=== PATIENT | male | born 1965 | race Two or more races ===

== ENCOUNTER 2021-07-10 08:44 | Emergency (ER) | payer MEDICAID, SELFPAY ==
--- NOTE | ~2021-07-10 | XR_ITS ---
EXAMINATION: XR RIBS, LEFT CLINICAL INFORMATION: Fall. Pain. COMPARISON: None TECHNIQUE: 3 views of the left ribs were obtained. FINDINGS: The cardiac and mediastinal contours are normal. Lungs are clear. There is a small left pleural effusion. There is no pneumothorax area there are recent appearing left posterior seventh and question eighth rib fractures. There are old left posterior 11th and question 10th rib fractures. XR/XR ribs LT min 3V w CXR1V IMPRESSION: Multiple left rib fractures of varying ages. There is a recent appearing left posterior seventh and question eighth rib fracture. Small left pleural effusion. No pneumothorax.
--- NOTE | ~2021-07-10 | CT_ITS ---
EXAMINATION: CT CHEST WITHOUT CONTRAST CLINICAL INFORMATION: Multiple left rib fractures. Rule out pneumothorax COMPARISON: Left RIBS 07/10/2021 TECHNIQUE: Multidetector volumetric CT imaging of the chest was done. Axial MIP volume rendering provided. Sagittal and coronal reformatted images were obtained. This CT examination was performed using dose optimization techniques as appropriate, variously including the following: *Automated exposure control *Adjustment of mA and/or kV according to patient size (this includes techniques or standardized protocols for targeted exams where dose is matched to indication/reason for exam; i.e. extremities or head) *Use of iterative reconstruction technique DLP: 250 mGy-cm FINDINGS: NOTEREADER: Well-inflated lungs with mild flattening of left hemidiaphragm LUNGS: The lungs are well-expanded and clear of acute pneumonic process. There is no lung contusion or consolidation. MEDIASTINUM: The thyroid lobes are symmetric and normal. The central trachea and the bronchi are widely patent. There are no mediastinal mass or hematoma. There are small shotty aortic window and precarinal lymph nodes. The thoracic aorta appears to be normal caliber. PLEURA: There is a small left pleural effusion with a small loculated pneumothorax. There is no pneumothorax. AXILLA: No lymphadenopathy. UPPER ABDOMEN: Visualized liver, spleen, pancreas and bilateral adrenal glands are unremarkable. OSSEOUS STRUCTURES: There are minimally displaced left posterior eighth and nondisplaced seventh rib fractures. No additional fractures seen. CT/CT chest wo con IMPRESSION: Left posterior eighth and posterolateral seventh rib fractures with small loculated left pleural effusion with fluid collection. No visible lung contusion, mediastinal hematoma or pneumothorax. Fleischner guidelines were followed.
[2021-07-10 09:10] VITALS: BP 169/94; PULSE 75; RESP 16; TEMP 36.8; O2SAT 100; BMI 24.2
--- NOTE | 2021-07-10 09:51 | ED_ITS ---
HPI - General Adult General Chief complaint: General Medical Stated complaint: rib pain l side fell down stairs Time Seen by Provider: 07/10/21 09:15 Source: patient Mode of arrival: ambulatory History of Present Illness HPI narrative: 55-year-old male no significant past medical history presenting to the ED complaining of left-sided rib pain x3 days s/p mechanical fall down 6 stairs. Denies symptoms prior to fall, denies head trauma or LOC. Reports pain with breathing/movement. Denies abdominal pain, nausea, vomiting, neck/back pain, headache. Denies taking AC Onset (ago): day(s) Related Data Previous Rx's Medication Instructions Recorded acetaminophen 500 mg tablet 500 mg PO Q6H PRN #14 tab 07/10/21 (Tylenol Extra Strength) ibuprofen 600 mg tablet 600 mg PO Q8H PRN #14 tab 07/10/21 oxycodone 5 mg tablet 5 mg PO Q6H PRN 3 Days #9 tab 07/10/21 Allergies Allergy/AdvReac Type Severity Reaction Status Date / Time No Known Allergies Allergy Mild N/A Verified 07/10/21 09:10 Review of Systems Review of Systems: Constitutional: No Fever, No Chills ENT/Mouth: No Ear Pain, No Nasal Congestion, No sore throat, No Rhinorrhea, No Swallowing Difficulty Cardiovascular: + Chest wall Pain, + SOB from pain Respiratory: No Cough, No Sputum, No Wheezing Gastrointestinal: No Nausea, No Vomiting, No Diarrhea, No Constipation, No Abdominal pain Genitourinary: No Dysuria, No Urinary Incontinence/retention, No Flank Pain Musculoskeletal: No joint pain, No Myalgias, No Joint Swelling Skin: No Skin Lesions, No rash Neuro: No Weakness, No Numbness, No Paresthesias, No head trauma, No LOC Yes all other systems are reviewed and are negative [facility] Past Medical History Attestation statement: The following information was validated with the patient. Medical History No known health problems Social History Social History Advance Directives: No Advance Directives Information Provided: No Physical Exam ED Vital Signs: Vital Signs - 24 hr 07/10/21 09:10 Temperature 98.2 F Pulse Rate 75 Respiratory Rate 16 Blood Pressure 169/94 H Pulse Oximetry 100 BMI result Body Mass Index 24.2 Const General: cooperative, healthy appearing and no acute distress Orientation/consciousness: patient oriented x3 Limitations: no limitations HENMT Head: Yes normal to inspection and Yes atraumatic Ears: hearing grossly normal bilaterally General nose exam: Normal external nose present Face and sinus: Yes normal facial exam Eyes General: appearance normal, both eyes and all related structures EOM: EOMs intact bilaterally Neck Other: No midline cervical spinous tenderness Neck: Yes normal visual inspection and Yes no meningeal signs Chest Other: No appreciable chest wall deformity. No flail chest. + left anterior lateral chest wall tenderness to palpation reproducing subjective complaint Chest palpation & inspection: no crepitus and tenderness Resp Effort & Inspection: normal respiratory effort and no respiratory distress Auscultation: clear to auscultation bilaterally, no rales, no rhonchi and no wheezes Cardio Rate: regular rate Heart sounds: S1 normal heart sound present and S2 normal heart sound present GI Inspection: Yes normal to inspection Palpation (GI): Soft to palpation, nontender, no guarding and not rigid General: Yes no CVA tenderness Back/Spine/Pelvis Other: No midline thoracic/lumbar spinous tenderness/step-off or deformity Back: no CVA tenderness Skin Rashes: no rashes Wounds: no wounds Neuro General: patient oriented x3, tone normal and no meningeal signs Gait exam (Neuro): Normal gait present Extrem General: Yes normal to inspection Course Course Course Narrative: XR ribs LT min 3V w CXR1V IMPRESSION: Multiple left rib fractures of varying ages. There is a recent appearing left posterior seventh and question eighth rib fracture. Small left pleural effusion. No pneumothorax. > patient admits to old prior left rib fractures. >> will obtain dry CT chest to r/o hemothorax and CBC. Vital signs are stable. -H&H stable -1350--CT chest wo con IMPRESSION: Left posterior eighth and posterolateral seventh rib fractures with small loculated left pleural effusion with fluid collection. No visible lung contusion, mediastinal hematoma or pneumothorax. ? ?>> will consult thoracic surgery -1531--spoke to her sick surgery PA Lion, recommended repeat chest x-ray tomorrow to make sure area is not filling up with fluid. Incentive spirometer and adequate pain control. Results/follow-up discussed with patient and including worrisome signs and symptoms and strict return precautions and needed follow-up with thoracic surgery as well as return to ED for repeat CXR tomorrow. Patient verbalized understanding feel safe for discharge home Medical Decision Making MDM Narrative Medical decision making narrative: 55-year-old male no significant past medical history presenting to the ED complaining of left-sided rib pain x3 days s/p mechanical fall down 6 stairs. On exam vital signs stable, NAD/nontoxic-appearing, physical exams above. No midline spinous tenderness throughout. A sided rib tenderness elicited. Abdomen soft and nontender. Concern for rib fracture versus contusion. Low concern for intra-abdominal injury/bleeding Plan: X-rays Medical Records Medical records reviewed: Yes I reviewed the patient's medical records. Lab Data Lab results reviewed: Yes I reviewed the patient's lab results. Result diagrams: 07/10/21 11:55 Labs: Lab Results 07/10/21 Range/Units 11:55 WBC 6.1 (4.8-10.8) X10*3/uL RBC 4.99 (4.60-5.80) X10*6/uL Hgb 14.4 (14.0-18.0) g/dl Hct 44.0 (42.0-52.0) % MCV 88.2 (80.0-98.0) fL MCH 28.9 (27.0-33.0) pg MCHC 32.7 (31.0-36.0) g/dl RDW 13.2 (11.0-16.0) % Plt Count 287 (160-400) X10*3/uL MPV 8.9 L (9.4-12.4) fL Immature Gran % (Auto) 0.3 (0.0-0.4) % Neut % (Auto) 50.1 (45-73) % Lymph % (Auto) 35.0 (20-40) % Atlantic % (Auto) 5.4 (2-11) % Eos % (Auto) 8.5 H (0-4) % Baso % (Auto) 0.7 (0-2) % Lymph # (Auto) 2.1 (1.2-4.9) X10*3/uL Atlantic # (Auto) 0.3 (0.1-1.2) X10*3/uL Eos # (Auto) 0.5 H (0.0-0.4) X10*3/uL Baso # (Auto) 0.0 (0.0-0.2) X10*3/uL Abs Immat Gran (auto) 0.02 (0.00-0.03) X10*3/uL Absolute Neuts (auto) 3.1 (2.0-8.3) x10*3/uL Absolute Nucleated RBC 0.000 (0.0-0.012) X10*3/uL Nucleated RBC % (auto) 0.0 (0.0-0.2) /100WBC Discharge Plan Discharge Clinical Impression: Left rib fracture, Pleural effusion Patient Disposition: Home, Self-Care Instructions: Rib Fracture (ED) Additional Instructions: You have to rib fractures of ribs 7 and 8. You also have a fluid in your lungs. YOU NEED TO RETURN TO THE EMERGENCY DEPARTMENT FOR REPEAT X-RAY TOMORROW TO MAKE SURE THIS FLUID IS NOT WORSENING. PLEASE USE INCENTIVE SPIROMETER. TAKE TYLENOL AND IBUPROFEN AROUND THE CLOCK PRESCRIBED OXYCODONE IS IN OPIATE PAIN MEDICATION, TAKE ONLY WHEN PAIN IS SEVERE FOR THE NEXT [address], DRINK ALCOHOL, OR OPERATE MACHINERY WHILE TAKING IF YOU DEVELOP FEVER, CONSTANT WORSENING PAIN, UNBEARABLE PAIN, SHORTNESS OF BREATH PLEASE RETURN TO THE EMERGENCY DEPARTMENT. You to follow-up with your PCP/thoracic surgery afterwards Prescriptions: New ibuprofen 600 mg tablet 600 mg PO Q8H PRN (Reason: fever or pain) Qty: 14 0RF acetaminophen [Tylenol Extra Strength] 500 mg tablet 500 mg PO Q6H PRN (Reason: fever or pain) Qty: 14 0RF oxycodone 5 mg tablet 5 mg PO Q6H PRN (Reason: pain (scale score 7-10)) 3 Days Qty: 9 0RF Referrals: Huma Smith DO [Emergency Provider] - 1 day (FOR REPEAT X-RAY) Salma Martinez PA [Physician Jointer Operator] - 1 week
[2021-07-10] MEDS: oxyCODONE HCl Immed Release 5 MG TABLET PO (11:49)
[2021-07-10 12:04] LABS: MANUAL DIFF FLAG NO
[2021-07-10 12:11] LABS: Basophils Percent Auto 0.7 % (0-2); Eosinophils Absolute Auto 0.5 X10*3/uL (0.0-0.4); Eosinophils Percent Auto 8.5 % (0-4); Hemoglobin 14.4 g/dl (14.0-18.0); Imm Gran Abs Auto 0.02 X10*3/uL (0.00-0.03); Imm Gran Pct Auto 0.3 % (0.0-0.4); Lymphocytes Absolute Auto 2.1 X10*3/uL (1.2-4.9); Mean Corpuscular HGB Conc 32.7 g/dl (31.0-36.0); Mean Corpuscular Hemoglobin 28.9 pg (27.0-33.0); Mean Corpuscular Volume 88.2 fL (80.0-98.0); Mean Platelet Volume 8.9 fL (9.4-12.4); Monocytes Absolute Auto 0.3 X10*3/uL (0.1-1.2); Monocytes Percent Auto 5.4 % (2-11); Neutrophils Absolute Auto 3.1 x10*3/uL (2.0-8.3); Neutrophils Percent Auto 50.1 % (45-73); Platelet Count 287 X10*3/uL (160-400); Red Blood Count 4.99 X10*6/uL (4.60-5.80); Red Cell Distribution Width 13.2 % (11.0-16.0); White Blood Count 6.1 X10*3/uL (4.8-10.8)
[2021-07-10 15:32] VITALS: BP 169/96; PULSE 77; RESP 16; TEMP 36.6; O2SAT 99
== END 2021-07-10 15:55 | disposition home or self-care (01) ==
PROVIDERS: Physician Assistant; Emergency Provider Emergency Medicine
DX: S22.42XA Multiple fractures of ribs, left side, initial encounter for closed fracture (principal); J90 Pleural effusion, not elsewhere classified; W10.9XXA Fall (on) (from) unspecified stairs and steps, initial encounter; Y93.9 Activity, unspecified; Y92.9 Unspecified place or not applicable; Y99.9 Unspecified external cause status
CPT/HCPCS: 36415; 71101; 71250; 85025; 99284

== ENCOUNTER 2021-07-11 09:08 | Emergency (ER) | payer MEDICAID, SELFPAY ==
--- NOTE | ~2021-07-11 | XR_ITS ---
EXAMINATION: XR CHEST CLINICAL INFORMATION: Known rib fracture, pain, question effusion COMPARISON: CT chest from 07/10/2021 TECHNIQUE: 2 views of the chest were obtained. FINDINGS: Redemonstration of mildly displaced fractures involving the left posterior seventh and eighth ribs. Small left pleural effusion. No pneumothorax. Trachea is midline. Cardiomediastinal silhouette is not enlarged. Degenerative changes of the thoracolumbar spine. Soft tissues are unremarkable. XR/XR chest 2V IMPRESSION: 1. Redemonstration of mildly displaced fractures involving the left posterior seventh and eighth ribs. 2. Small left pleural effusion.
[2021-07-11 09:14] VITALS: BP 170/92; PULSE 71; RESP 18; TEMP 36.1; O2SAT 99; BMI 24.2
--- NOTE | 2021-07-11 09:14 | ED.GENADULT ---
HPI - General Adult General Chief complaint: General Medical Stated complaint: RIB INJ Time Seen by Provider: 07/11/21 09:11 Source: patient Mode of arrival: ambulatory Limitations: no limitations History of Present Illness HPI narrative: Patient presents to the emergency department today stating that he needs a follow-up x-ray. Four days ago he fell down 6 stairs injuring the left side of his chest wall causing pain. Pain is reproducible to the deep breathing and movement. He states he was told yesterday that he has rib fractures and some fluid on the long and was told to come back today to check on the fluid status. He states that his pain has improved since yesterday since he has been taking Tylenol and ibuprofen in addition to oxycodone as needed and using his incentive spirometer. Related Data Previous Rx's Medication Instructions Recorded acetaminophen 500 mg tablet 500 mg PO Q6H PRN #14 tab 07/10/21 (Tylenol Extra Strength) ibuprofen 600 mg tablet 600 mg PO Q8H PRN #14 tab 07/10/21 oxycodone 5 mg tablet 5 mg PO Q6H PRN 3 Days #9 tab 07/10/21 Allergies Allergy/AdvReac Type Severity Reaction Status Date / Time No Known Allergies Allergy Mild N/A Verified 07/10/21 09:10 Review of Systems Review of Systems: Constitutional: No weight loss, fever, chills, weakness or fatigue. ENT/ Mouth: No Ear Pain, No Nasal Congestion, No sore throat, No Rhinorrhea, No Swallowing Difficulty Skin: No rash or itching. Cardiovascular: Positive chest pain Respiratory: Positive shortness of breath Gastrointestinal: No nausea, vomiting or diarrhea. No abdominal pain Genitourinary: No burning micturition. No urinary frequency or incontinence. Neurologic: No headache, dizziness, syncope, unilateral weakness, ataxia, numbness or tingling in the extremities. Musculoskeletal: No muscle pain, back pain, joint pain or stiffness. Yes all other systems are reviewed and are negative PMFSH Past Medical History Attestation statement: The following information was validated with the patient. Source: old records reviewed Medical History No known health problems Social History Social History Advance Directives: No Advance Directives Information Provided: Yes Physical Exam ED Vital Signs: Vital Signs - 24 hr 07/11/21 09:14 Temperature 97.0 F Pulse Rate 71 Respiratory Rate 18 Blood Pressure 170/92 H Pulse Oximetry 99 BMI result Body Mass Index 24.2 Appearance: Alert.?Oriented to person, place and time. No acute distress.?Normal affect. Eyes: Pupils equal, round and reactive to light.? ENT: Pharynx normal.?? Neck: Normal inspection.? Neck supple.?? CVS: Heart sounds normal. Normal heart rate and rhythm.? Pulses normal.? Chest: Left lateral chest wall tenderness with palpation. No crepitus. No palpable deformity? Respiratory: No respiratory distress.? Lung sounds clear to auscultation bilaterally?? Abdomen: Soft and non-tender. ?? Skin: Skin warm and dry.? Normal skin color.? Extremities: No lower extremity edema.? Neuro: Moves all extremities spontaneously. Sensation intact bilaterally. No focal neuro deficits. Ambulates with normal steady gait. Course Course Course Narrative: Patient is a 55-year-old male who was evaluated yesterday in the emergency department with the same complaints. Chest x-ray obtained revers multiple left rib fractures of varying ages with recent appearing post left posterior 7th and question of a rib fracture with a small pleural effusion. Chest CT was obtained for further evaluation which revealed a small loculated left pleural effusion with fluid collection. Thoracic surgery was consulted and recommended to have repeat chest x-ray today to assure that effusion is not worsening. Patient has been using incentive spirometer in addition to Tylenol ibuprofen and oxycodone as needed for his pain. He actually reports feeling better today than he did yesterday. Additionally he has no new complaints at this time. Reevaluation(s) Reevaluation #1: Chest x-ray continues to show small left pleural effusion, does not appear to be worsened or increased in size in comparison to x-ray yesterday. Discussed this finding with patient, advised outpatient follow-up with primary care provider in addition to Tylenol/ibuprofen and oxycodone as needed for pain, use of incentive spirometer, all questions were answered and patient discharged home in stable condition. Time: 10:11 Medical Decision Making Medical Records Medical records reviewed: Yes I reviewed the patient's medical records. Imaging Data Chest x-ray: Radiologist's impression: XR/XR chest 2V IMPRESSION: 1.? Redemonstration of mildly displaced fractures involving the left posterior seventh and eighth ribs. 2.? Small left pleural effusion. Discharge Plan Discharge Clinical Impression: Left rib fracture, Pleural effusion Patient Disposition: Home, Self-Care Instructions: Rib Fracture (ED) Additional Instructions: Your chest x-ray today reveals no change in the fluid buildup around your lung. Continue taking pain medication as previously prescribed. Continue using incentive spirometer. Your blood pressure was elevated while you were in the emergency department yesterday as well as today, this may be due to your pain, please be certain to make your primary care provider aware of this as they may need to consider treating you for high blood pressure if it continues to remain elevated. up with your primary care provider within 1 week/thoracic surgery afterwards. Prescriptions: No Action ibuprofen 600 mg tablet 600 mg PO Q8H PRN (Reason: fever or pain) Qty: 14 0RF acetaminophen [Tylenol Extra Strength] 500 mg tablet 500 mg PO Q6H PRN (Reason: fever or pain) Qty: 14 0RF oxycodone 5 mg tablet 5 mg PO Q6H PRN (Reason: pain (scale score 7-10)) 3 Days Qty: 9 0RF Interventions: ED Discharge Assessment Last Done: 07/11/21 10:26 Discharge Date/Time: 07/11/21 10:27
== END 2021-07-11 10:27 | disposition home or self-care (01) ==
PROVIDERS: Emergency Provider Emergency Medicine
DX: S22.32XA Fracture of one rib, left side, initial encounter for closed fracture (principal); J90 Pleural effusion, not elsewhere classified; W10.9XXA Fall (on) (from) unspecified stairs and steps, initial encounter; Y93.9 Activity, unspecified; Y92.9 Unspecified place or not applicable; Y99.9 Unspecified external cause status; Z79.899 Other long term (current) drug therapy
CPT/HCPCS: 71046; 99283

== ENCOUNTER 2022-10-07 08:53 | Emergency (ER) | payer MEDICAID, SELFPAY ==
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
[2022-10-07 08:56] VITALS: BP 162/107; PULSE 80; RESP 16; TEMP 36.4; O2SAT 98; BMI 21.5
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
[2022-10-07] MEDS: Diphth,Pertus(ACell),Tet Adult 0.5 ML SYRINGE IM (09:46)
[2022-10-07 10:29] VITALS: RESP 18
[2022-10-07] MEDS: traMADoL HCL 50 MG TABLET 25 MG PO (10:47)
[2022-10-07] MEDS: Ibuprofen 600 MG TABLET PO (10:47)
--- NOTE | 2022-10-07 10:56 | MHC.EDTECH ---
Left wrist soft brace applied to pt comfortably per PA-C
[2022-10-07 11:02] VITALS: BP 173/105; RESP 18
== END 2022-10-07 11:30 | disposition home or self-care (01) ==
PROVIDERS: Emergency Provider Emergency Medicine
DX: S60.222A Contusion of left hand, initial encounter (principal); S05.12XA Contusion of eyeball and orbital tissues, left eye, initial encounter; S01.112A Laceration without foreign body of left eyelid and periocular area, initial encounter; V19.3XXA Pedal cyclist (driver) (passenger) injured in unspecified nontraffic accident, initial encounter; Y93.55 Activity, bike riding; Y92.9 Unspecified place or not applicable; Y99.9 Unspecified external cause status
CPT/HCPCS: 70450; 70486; 73120; 90471; 90715; 99284

== ENCOUNTER 2024-05-13 16:46 | Emergency (ER) | payer MEDICAID, SELFPAY ==
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
[2024-05-13 17:05] VITALS: BMI 28.1
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
[2024-05-13 17:25] VITALS: BP 164/101; PULSE 78; RESP 20; TEMP 36.6; O2SAT 100
--- OUTSIDE RECORDS SUMMARY | 2024-05-13 17:37 | XMS_ITS | Encounter Summary ---
Author Organization [employer] Address [address] [facility] [address] [place] [address] Care Team Providers Care Gas Fitter Helper Name Role Phone Marta Campos Primary Care Provider [phone] Encounter Details Date Type Department Care Team (Latest Contact Info) Description 05/21/2020 Abstract [facility] CONVERSIONS Dental, Provider, DDS Social History Tobacco Use Types Packs/Day Years Used Date Smoking Tobacco: Never Assessed Sex and Gender Information Value Date Recorded Sex Assigned at Male 01/06/2022 10:18 AM EDT Legal Sex Male 10:18 AM EDT Gender Identity Choose not to disclose 10:18 AM EDT Sexual Orientation Don't know 01/06/2022 10 :18 AM EDT documented as of this encounter Plan of Treatment Not on file documented as of this encounter Visit Diagnoses Not on filedocumented in this encounter Care Teams Gas Fitter Helper Relationship Specialty Start Date End Date Marta Campos ANP [address] [place] [id number] PCP - General Family Medicine 08/03/19 documented as of this encounter
--- OUTSIDE RECORDS SUMMARY | 2024-05-13 17:37 | XMS_ITS | Clinical Summary ---
Author Organization [employer] Address [address] [facility] [address] [place] [address] Care Team Providers Care Registration Officer Name Role Phone Marta Campos Primary Care Provider [phone] Social History Tobacco Use Types Packs/Day Years Used Date Smoking Tobacco: Never Assessed Sex and Gender Information Value Date Recorded Sex Assigned at Male 01/06/2022 10:18 AM EDT Legal Sex Male 10:18 AM EDT Gender Identity Choose not to disclose 10:18 AM EDT Sexual Orientation Don't know 01/06/2022 10 :18 AM EDT Last Filed Vital Signs Vital Sign Reading Time Taken Comments Blood Pressure 136/84 09/12/2021 12:07 AM EDT Pulse 80 09/12/2021 12:07 AM EDT Temperature - - Respiratory Rate - - Oxygen Saturation - - Inhaled Oxygen Concentration - - Weight 66.5 kg (146 lb 9.6 oz) 09/12/2021 12:07 AM EDT Height 170.2 cm (5' 7 ) 09/12/2021 12:07 AM EDT Body Mass Index 22.96 09/12/2021 12:07 AM EDT Plan of Treatment Health Maintenance Due Date Last Done Comments CT Colonography 1965 Colonoscopy 1965 Colorectal Cancer Screening 1965 Depression Screening 1965 FIT DNA/Cologuard 1965 FIT 1965 FOBT 1965 Lipid Panel 1965 Sigmoidoscopy 1965 Alcohol/Substance Use Screening 1977 Tobacco Screening 1977 Hepatitis B Vaccines (1 of 3 - 19+ 3-dose series) 1984 Zoster Vaccines (1 of 2) 09/04/2015 Pneumococcal Vaccine: 50+ Years (2 of 2 - PCV) 09/02/2016 2015 COVID-19 Vaccine (3 - 2023-2 5 season) 2023 07/24/2020, 07/02/2020 Influenza Vaccine (#1) 2023 DTaP/Tdap/Td Vaccines (2 - T d or Tdap) 09/02/2025 2015 RSV Patients and Patients Aged 60 years or older (1 - 1-dose 75+ series) 2040 Pneumococcal Vaccine: Pediatrics (0 to 5 Years) and At-Risk Patients (6 to 49) Years) Aged Out 2015 No longer eligible b ased on patient's age to complete this topic HIB Vaccines Aged Out No longer eligi ble based on patient's age to complete this topic HPV Vaccines Aged Out No longer eligi ble based on patient's age to complete this topic Hepatitis A Vaccines Aged Out No long er eligible based on patient's age to complete this topic IPV Vaccines Aged Out No longer eligi ble based on patient's age to complete this topic Meningococcal Vaccine Aged Out No rosibel sukhjinder eligible based on patient's age to complete this topic RSV under 20 months Aged Out No longe r eligible based on patient's age to complete this topic Rotavirus Vaccines Aged Out No longer eligible based on patient's age to complete this topic Care Teams Registration Officer Relationship Specialty Start Date End Date Marta Campos ANP [address] [place] [id number] PCP - General Family Medicine 08/03/19
--- OUTSIDE RECORDS SUMMARY | 2024-05-13 17:37 | XMS_ITS | Encounter Summary ---
Author Organization [employer] Address [address] [facility] [address] [place] [address] Care Team Providers Care Dental Claims Processor Name Role Phone Marta Campos Primary Care Provider [phone] Encounter Details Date Type Department Care Team (Latest Contact Info) Description 05/19/2018 Abstract [facility] CONVERSIONS Dental, Provider, DDS Social History Tobacco [...] on filedocumented in this encounter Care Teams Dental Claims Processor Relationship Specialty Start Date End Date Marta Campos ANP [address] [place] [id number] PCP - General Family Medicine 08/03/19 documented as of this encounter
[2024-05-13] MEDS: oxyCODONE HCl Immed Release 5 MG TABLET 10 MG PO (17:49)
[2024-05-13] MEDS: Acetaminophen 325 MG TABLET 975 MG PO (17:50)
[2024-05-13 20:00] VITALS: BP 159/92; PULSE 66; RESP 16; TEMP 36; O2SAT 96
[2024-05-13] MEDS: Ibuprofen 400 MG TABLET PO (20:38)
[2024-05-13 23:02] VITALS: BP 167/92; PULSE 70; RESP 16; TEMP 36.6; O2SAT 99
[2024-05-13 23:17] VITALS: BP 167/92; PULSE 70; RESP 16; TEMP 36.6; O2SAT 99
== END 2024-05-13 23:18 | disposition home or self-care (01) ==
PROVIDERS: Emergency Provider Emergency Medicine Emergency Medical Services
DX: S40.011A Contusion of right shoulder, initial encounter (principal); S01.311A Laceration without foreign body of right ear, initial encounter; S09.90XA Unspecified injury of head, initial encounter; S80.12XA Contusion of left lower leg, initial encounter; S42.001A Fracture of unspecified part of right clavicle, initial encounter for closed fracture; R22.2 Localized swelling, mass and lump, trunk; V17.0XXA Pedal cycle driver injured in collision with fixed or stationary object in nontraffic accident, initial encounter; Y93.55 Activity, bike riding; Y92.9 Unspecified place or not applicable; Y99.9 Unspecified external cause status; Z59.02 Unsheltered homelessness
CPT/HCPCS: 70450; 71250; 72125; 73030; 73552; 73562; 99284

== ENCOUNTER → 2024-05-13 17:13 | Outpatient (BNV) | payer MEDICAID, SELFPAY | PROVIDERS: Emergency Provider Emergency Medicine Emergency Medical Services; Visit Provider Radiology Diagnostic Radiology | DX: M25.562 Pain in left knee (principal); M79.652 Pain in left thigh; M25.511 Pain in right shoulder; V18.0XXA Pedal cycle driver injured in noncollision transport accident in nontraffic accident, initial encounter | CPT/HCPCS: 70450; 71250; 72125; 73030; 73552; 73564 ==

== ENCOUNTER 2024-05-31 10:33 | Outpatient (AMB) | payer MEDICAID, SELFPAY ==
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
[2024-05-31 10:35] VITALS: BMI 19.8
== END 2024-05-31 11:12 | disposition home or self-care (01) ==
LOC: HO.HGS 10:34
PROVIDERS: Visit Provider Surgery
DX: Z98.890 Other specified postprocedural states (principal); R22.2 Localized swelling, mass and lump, trunk
CPT/HCPCS: 99204

== ENCOUNTER → 2024-05-31 10:33 | Outpatient (BNVA) | payer MEDICAID, SELFPAY | PROVIDERS: Visit Provider Surgery | DX: R22.2 Localized swelling, mass and lump, trunk (principal); Z98.890 Other specified postprocedural states | CPT/HCPCS: 99202 ==

== ENCOUNTER 2024-06-01 07:13 | Outpatient (REF) | payer MEDICAID, SELFPAY | END 2024-06-01 07:14 | disposition home or self-care (01) | LOC: HO.HOSX 07:13 | PROVIDERS: Visit Provider Physician Assistant | DX: Z13.89 Encounter for screening for other disorder (principal) ==

== ENCOUNTER 2024-06-03 08:29 | Outpatient (REF) | payer MEDICAID, SELFPAY ==
--- NOTE | ~2024-06-03 | XR_ITS ---
EXAMINATION: XR CLAVICLE RIGHT HISTORY: S42.009A - Fracture of unspecified part of unspecified clavicle, initial... COMPARISON: Comparison is made with the prior examination dated 05/13/2024. FINDINGS: Two views of the right clavicle are submitted. Osseous mineralization is normal. Again seen is a transverse fracture of the midshaft of the clavicle. There is slight inferior displacement of the distal fracture fragment. No significant angulation is seen on these views. No callus formation is identified. There is mild osteoarthritis of the AC joint. The soft tissues are unremarkable. XR/XR clavicle RT IMPRESSION: Transverse fracture of the midshaft of the right clavicle. Electronically signed by: Moiz Silva MD 06/03/2024 09:33 AM EDT
== END 2024-06-03 08:30 | disposition home or self-care (01) ==
LOC: HO.HOSX 08:29
PROVIDERS: Visit Provider Physician Assistant
DX: S42.001A Fracture of unspecified part of right clavicle, initial encounter for closed fracture (principal)
CPT/HCPCS: 73000; 99212

== ENCOUNTER 2024-06-03 08:42 | Outpatient (AMB) | payer MEDICAID, SELFPAY ==
[2024-06-03 08:53] VITALS: BMI 19.8
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
== END 2024-06-03 09:28 | disposition home or self-care (01) ==
LOC: HO.HOS 08:42
PROVIDERS: Visit Provider Physician Assistant
DX: S42.001A Fracture of unspecified part of right clavicle, initial encounter for closed fracture (principal)
CPT/HCPCS: 99203

== ENCOUNTER → 2024-06-03 08:44 | Outpatient (BNV) | payer MEDICAID, SELFPAY | PROVIDERS: Visit Provider Radiology Diagnostic Radiology | DX: S42.021A Displaced fracture of shaft of right clavicle, initial encounter for closed fracture (principal) | CPT/HCPCS: 73000 ==

== ENCOUNTER 2024-07-29 08:20 | Outpatient (REF) | payer MEDICAID, SELFPAY ==
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
== END 2024-07-29 08:21 | disposition home or self-care (01) ==
LOC: HO.HOSX 08:20
PROVIDERS: Visit Provider Physician Assistant
DX: Z13.89 Encounter for screening for other disorder (principal)

== ENCOUNTER 2024-08-03 12:46 | Outpatient (REF) | payer MEDICAID, SELFPAY ==
--- OUTSIDE RECORDS SUMMARY | 2024-08-03 13:27 | XMS_ITS | Clinical Summary ---
Author Organization [facility] Address [address] [facility] 7t [place] [address] Care Team Providers Care Hospice Executive Director Name Role Phone Marta Campos Primary Care Provider [phone] Allergies No known active allergies Active Problems [...] Team Description 05/20/2024 Population Health Risk Score [facility] ([facility] Department [address] [facility] 7 [place] [phone] Provider, Population Health Generic 05/18/2024 3:15 PM EDT Office Visit [facility] [address] [place] [address] Nava Bell MD Contusion of right shoulder, initial encounter (Primary Dx); Closed nondisplaced fracture of right clavicle, unspecified part of clavicle, initial encounter; Supraclavicular mass 05/17/2024 Telephone [facility] [address] [place] [address] Marta Campos ANP imaging 05/13/2024 Orders Only [facility] External Provider, [facility] from Last 3 Months Social History Tobacco [...] EST Narrative 05/13/2024 10:17 PM EST ? [facility] ?[address] ?[place] [address] ?XRay Report ? Signed ? Patient: John,Delano ?MR#: [id number] ? : 1965 ?Acct:[id number] ? Age/Sex: 58 / M ?ADM Date: 05/13/24 ? Loc: HO.ED ? Attending Dr: ? Ordering Physician: Barrett Sharma MD ?? Date of Service: 05/13/24 ?? Procedure(s): XR femur LT 2V ?? Accession Number(s): [id number] ? cc: [facility]; Barrett Sharma MD ? CLINICAL HISTORY: [...] ? DD/ 15 ? TD/TT: 05/13/242215 ? Shoe Repairer Apprentice: ? Procedure Note Yaneth Weston - 05/13/[address] [address] XRay Report Signed Patient: Keven Lopez#: [id number] : 1965Acct:[id number] Age/Sex: 58 / MADM Date: 05/13/24 Loc: HO.ED Attending Dr: Ordering Physician: Barrett Sharma MD Date of Service: 05/13/24 Procedure(s): XR femur LT 2V Accession Number(s): [id number] cc: [facility]; Barrett Sharma MD CLINICAL HISTORY: Fall [...] in OV> 05/13/242215 DD/ 15 TD/TT: 05/13/242215 Shoe Repairer Apprentice: us [facility] External Provider IMG XR PROCEDURES Edited Result - Final * XR Shoulder 2+ Views Right (05/13/2024 10:16 PM EST) Anatomical Region Laterality Modality Upper Extremities, Shoulder Right Radi ographic Imaging 05/13/2024 10:1 6 PM EST Narrative 05/13/2024 10:17 PM EST ? [facility] ?[address] ?[place] [address] ?XRay Report ? Signed ? Patient: John,Delano ?MR#: [id number] ? : 1965 ?Acct:[id number] ? Age/Sex: 58 / M ?ADM Date: 03/07/25 ? Loc: HO.ED ? Attending Dr: ? Ordering Physician: Barrett Sharma MD ?? Date of Service: 05/13/24 ?? Procedure(s): XR shoulder RT min 2V ?? Accession Number(s): [id number] ? cc: [facility]; Barrett Sharma MD ? CLINICAL HISTORY: [...] ? DD/ 15 ? TD/TT: 05/13/242215 ? Shoe Repairer Apprentice: ? Procedure Note Yaneth Weston - 05/13/2024 [place] [address] XRay Report Signed Patient: Keven Lopez#: [id number] : 1965Acct:[id number] Age/Sex: 58 / MADM Date: 05/13/24 Loc: HO.ED Attending Dr: Ordering Physician: Barrett Sharma MD Date of Service: 05/13/24 Procedure(s): XR shoulder RT min 2V Accession Number(s): [id number] cc: [facility]; Barrett Sharma MD CLINICAL HISTORY: Fall [...] in OV> 05/13/242216 DD/ 15 TD/TT: 05/13/242215 Shoe Repairer Apprentice: [facility] External Provider IMG XR PROCEDURES Edited Result - Final * XR Knee 3 Views Left (05/13/2024 10:14 PM EST) Anatomical Region Laterality Modality Lower Extremities, Knee Left Radiogra phic Imaging 05/13/2024 10:1 4 PM EST Narrative 05/13/2024 10:14 PM EST ? [facility] ?[address] ?[place] [address] ?XRay Report ? Signed ? Patient: Delano Lopez ?MR#: [id number] ? : 1965 ?Acct:[id number] ? Age/Sex: 58 / M ?ADM Date: 05/13/24 ? Loc: HO.ED ? Attending Dr: ? Ordering Physician: Barrett Sharma MD ?? Date of Service: 05/13/24 ?? Procedure(s): XR knee LT 3V ?? Accession Number(s): [id number] ? cc: [facility]; Barrett Sharma MD ? CLINICAL HISTORY: [...] ? Signed By: ?<Electronically signed by Luis Peacokc MD in OV> ? 05/13/242213 ? DD/ 13 ? TD/TT: 05/13/242213 ? Shoe Repairer Apprentice: ? Procedure Note Donant, Image - 05/13/[address] [address] XRay Report Signed Patient: Keven Lopez#: [id number] : 1965Acct:[id number] Age/Sex: 58 / MADM Date: 05/13/24 Loc: HO.ED Attending Dr: Ordering Physician: Barrett Sharma MD Date of Service: 05/13/24 Procedure(s): XR knee LT 3V Accession Number(s): [id number] cc: [facility]; Barrett Sharma MD CLINICAL HISTORY: Fall [...] in OV> 05/13/242213 DD/ 13 TD/TT: 05/13/242213 Shoe Repairer Apprentice: [facility] External Provider IMG XR PROCEDURES Edited Result - Final * CT Head w/o Contrast (05/13/2024 7:16 PM EST) Anatomical Region Laterality Modality Head, Neck Computed Tomogra phy 05/13/2024 7:16 PM EST Narrative 05/13/2024 7:17 PM EST ? [facility] ?[address] ?[place] [address] ? CT Scan Report ? Signed ? Patient: John,Delano ?MR#: [id number] ? : 1965 ?Acct:[id number] ? Age/Sex: 58 / M ?ADM Date: 05/13/24 ? Loc: HO.ED ? Attending Dr: ? Ordering Physician: Barrett Sharma MD ?? Date of Service: 05/13/24 ?? Procedure(s): CT head/brain wo IV con ?? Accession Number(s): [id number] ? cc: [facility]; Barrett Sharma MD ? Report Number: ?? [id number]: Total DLP = ?0.00 mGy-cm ? CLINICAL [...] ? DD/ 15 ? TD/TT: 05/13/241915 ? Shoe Repairer Apprentice: ? Procedure Note Trista, Image - 05/13/[address] [address] [address] Scan Report Signed Patient: Keven Lopez#: [id number] : 1965Acct:[id number] Age/Sex: 58 / MADM Date: 05/13/24 Loc: HO.ED Attending Dr: Ordering Physician: Barrett Sharma MD Date of Service: 05/13/24 Procedure(s): CT head/brain wo IV con Accession Number(s): [id number] cc: [facility]; Barrett Sharma MD Report Number: [id number]: Total DLP = 0.00 mGy-cm CLINICAL HISTORY: [...] in OV> 05/13/241916 DD/ 15 TD/TT: 05/13/241915 Shoe Repairer Apprentice: [facility] External Provider IMG CT PROCEDURES Final Result * CT Chest w/o Contrast (05/13/2024 7:01 PM EST) Anatomical Region Laterality Modality Body, Chest Computed Tomogra phy 05/13/2024 7:01 PM EST Narrative 05/13/2024 7:02 PM EST ? [facility] ?[address] ?[place] [address] ? CT Scan Report ? Signed ? Patient: John,Delano ?MR#: [id number] ? : 1965 ?Acct:[id number] ? Age/Sex: 58 / M ?ADM Date: 05/13/24 ? Loc: HO.ED ? Attending Dr: ? Ordering Physician: Barrett Sharma MD ?? Date of Service: 05/13/24 ?? Procedure(s): CT chest wo IV con ?? Accession Number(s): [id number] ? cc: [facility]; Barrett Sharma MD ? Report Number: ?? [id number]: Total DLP = ?0.00 mGy-cm ? CLINICAL [...] ? DD/ 00 ? TD/TT: 05/13/241900 ? Shoe Repairer Apprentice: ? Procedure Note Yaneth Weston - 05/13/[address] [address] CT Scan Report Signed Patient: Harry LopezTresa#: [id number] : 1965Acct:[id number] Age/Sex: 58 / MADM Date: 05/13/24 Loc: HO.ED Attending Dr: Ordering Physician: Barrett Sharma MD Date of Service: 05/13/24 Procedure(s): CT chest wo IV con Accession Number(s): [id number] cc: [facility]; Barrett Sharma MD Report Number: [id number]: Total DLP = 0.00 mGy-cm CLINICAL HISTORY: [...] in OV> 05/13/241900 DD/ 00 TD/TT: 05/13/241900 Shoe Repairer Apprentice: us [facility] External Provider IMG CT PROCEDURES Final Result * CT Cervical Spine w/o Contrast (05/13/2024 6:54 PM EST) Anatomical Region Laterality Modality Spine, C-spine Computed Tomogra phy 05/13/2024 6:54 PM EST Narrative 05/13/2024 6:55 PM EST ? [facility] ?[address] ?[place] [address] ? CT Scan Report ? Signed ? Patient: John,Delano ?MR#: [id number] ? : 1965 ?Acct:[id number] ? Age/Sex: 58 / M ?ADM Date: 03/07/25 ? Loc: HO.ED ? Attending Dr: ? Ordering Physician: Barrett Sahrma MD ?? Date of Service: 05/13/24 ?? Procedure(s): CT cervical spine wo IV con ?? Accession Number(s): [id number] ? cc: [facility]; Barrett Sharma MD ? Report Number: ?? [id number]: Total DLP = 1221.00 mGy-cm ? CLINICAL [...] ?? 05/13/2024 18:54:20 ? Dictated By: ?Denilson Monory MD ? Signed By: ?<Electronically signed by Denilson Monroy MD in OV> ?05/13/24 1855 ? DD/ 1854 ? TD/TT: 05/13/24 1854 ? Shoe Repairer Apprentice: ? Procedure Note Trista, Image - 05/13/[address] [place] [address] [address] Scan Report Signed Patient: Keven Lopez#: [id number] : 1965Acct:[id number] Age/Sex: 58 / MADM Date: 05/13/24 Loc: HO.ED Attending Dr: Ordering Physician: Barrett Sharma MD Date of Service: 05/13/24 Procedure(s): CT cervical spine wo IV con Accession Number(s): [id number] cc: [facility]; Barrett Sharma MD Report Number: [id number]: Total DLP = 1221.00 mGy-cm CLINICAL HISTORY: [...] in OV> 05/13/241854 DD/ 53 TD/TT: 05/13/241853 Shoe Repairer Apprentice: [facility] External Provider IMG CT PROCEDURES Final Result from Last 3 Months Insurance [facility] C3 Care Teams Hospice Executive Director Relationship Specialty Start Date End Date Marta Campos ANP [address] [place] [phone] PCP - General Family Medicine 08/03/19
[2024-08-03 14:17] LABS: Blood Urea Nitrogen 9 mg/dL (9-16); Estimated Glomerular Filt Rate > 60
== END 2024-08-03 12:47 | disposition home or self-care (01) ==
LOC: HO.LAB 12:46
PROVIDERS: PCP Nurse Practitioner Primary Care; Visit Provider Surgery
DX: S42.001A Fracture of unspecified part of right clavicle, initial encounter for closed fracture (principal)
CPT/HCPCS: 36415; 82565; 84520

== ENCOUNTER 2024-08-04 08:13 | Outpatient (REF) | payer MEDICAID, SELFPAY ==
--- NOTE | ~2024-08-04 | CT_ITS ---
CLINICAL HISTORY: R22.2 - Localized swelling, mass and lump, trunk --- Additional Notes or Special In structions: Status post right chest trauma with clavicular fracture. Supraclavicular CT chest with contrast Comparison: CT/SR - CT CHEST WO IV CON - 05/13/2024 05:36 PM EST Findings: The heart size is normal. The visualized thyroid and mediastinum are unremarkable. No consolidation or effusion. The upper abdomen is unremarkable. The bones are intact. IMPRESSION: 1. Unremarkable chest CT. This document has been electronically signed by: Lonnie Gomes MD on 08/05/2024 08:47:13
--- OUTSIDE RECORDS SUMMARY | 2024-08-04 08:17 | XMS_ITS | Clinical Summary ---
Author Organization [facility] Address [address] [facility] 7t [place] [address] Care Team Providers Care Flight Information Expediter Name Role Phone Marta Campos Primary Care Provider [phone] Allergies No known active allergies Active Problems [...] Score [facility] (C3) Department [address] [facility] 7 [place] [phone] Provider, Population Health Generic 05/18/2024 3:15 PM EDT Office Visit [facility] [address] [place] [address] Nava Bell MD Contusion of right shoulder, initial encounter (Primary Dx); Closed nondisplaced fracture of right clavicle, unspecified part of clavicle, initial encounter; Supraclavicular mass 05/17/2024 Telephone [facility] [address] [place] [address] Marta Campos ANP imaging 05/13/2024 Orders Only [facility] External Provider, [facility] from Last 3 Months Social History [...] Procedure Name Priority Date/Time Associated Diagnosis Comments CREATININE, SERUM Routine 08/03/2024 12: 55 PM EDT UREA NITROGEN (BUN) Routine 08/03/2024 1 2:55 PM EDT XR SHOULDER 2+ VIEWS RIGHT Routine 05/13/2024 [...] EST from Last 3 Months Results * Creatinine, Serum (08/03/2024 12:55 PM EDT) Creatinine, Serum 0.88 0.5 - 1.4 mg/dL [facility] Estimated Glomerular Filt Rate >60 [facility] Comment:Chronic Kidney Disea se: Estimated GFR < 60 mL/min/1.68h3Qinxvx Kidney Disease: Estimated GFR < 15 mL/min/1.73m2 08/03/2024 12:5 5 PM EDT 08/03/2024 12:55 PM EDT us Generic External Data Provider LAB BLOOD ORDERAB LES Final Result [facility] [address] [place] [phone] * BUN (Blood Urea Nitrogen) (08/03/2024 12:55 PM EDT) Urea Nitrogen (BUN) 9 9 - 16 mg/dL [facility] 08/03/2024 12:5 5 PM EDT 08/03/2024 12:55 PM EDT us Generic External Data Provider LAB BLOOD ORDERAB LES Final Result Performing Organization Address City/[facility]/ZIP Co de Phone Number [facility] [address] [place] [phone] * XR Femur 2+ Views Left (05/13/2024 10:16 PM EST) Anatomical Region Laterality Modality Lower Extremities, Femur Left Radiogr aphic Imaging 05/13/2024 10:1 6 PM EST Narrative 05/13/2024 10:17 PM EST ? [facility] ?[address] ?[place] [address] ?XRay Report ? Signed ? Patient: John,Delano ?MR#: [id number] ? : 1965 ?Acct:[id number] ? Age/Sex: 58 / M ?ADM Date: 05/13/24 ? Loc: HO.ED ? Attending Dr: ? Ordering Physician: Barrett Sharma MD ?? Date of Service: 05/13/24 ?? Procedure(s): XR femur LT 2V ?? Accession Number(s): [id number] ? cc: [facility]; Barrett Sharma MD ? CLINICAL HISTORY: [...] ? Signed By: ?<Electronically signed by Luis Peacock, MD in OV> ? 05/13/242215 ? DD/ 15 ? TD/TT: 05/13/242215 ? Delivery Technician: ? Procedure Note Yaneth Weston - 05/13/[address] [address] XRay Report Signed Patient: Keven Lopez#: [id number] : 1965Acct:[id number] Age/Sex: 58 / MADM Date: 05/13/24 Loc: HO.ED Attending Dr: Ordering Physician: Barrett Sharma MD Date of Service: 05/13/24 Procedure(s): XR femur LT 2V Accession Number(s): [id number] cc: [facility]; Barrett Sharma MD CLINICAL HISTORY: Fall [...] in OV> 05/13/242215 DD/ 15 TD/TT: 05/13/242215 Delivery Technician: [facility] External Provider IMG XR PROCEDURES Edited Result - Final * XR Shoulder 2+ Views Right (05/13/2024 10:16 PM EST) Anatomical Region Laterality Modality Upper Extremities, Shoulder Right Radi ographic Imaging 05/13/2024 10:1 6 PM EST Narrative 05/13/2024 10:17 PM EST ? [facility] ?[address] ?[place] [address] ?XRay Report ? Signed ? Patient: Delano Lopez ?MR#: [id number] ? : 1965 ?Acct:[id number] ? Age/Sex: 58 / M ?ADM Date: 05/13/24 ? Loc: HO.ED ? Attending Dr: ? Ordering Physician: Barrett Sharma MD ?? Date of Service: 05/13/24 ?? Procedure(s): XR shoulder RT min 2V ?? Accession Number(s): [id number] ? : [facility]; Barrett Sharma MD ? CLINICAL HISTORY: [...] by Luis Peacock MD in OV> ? 05/13/242216 ? DD/ 15 ? TD/TT: 05/13/242215 ? Delivery Technician: ? Procedure Note Donmaruter, Image - 05/13/[address] [address] XRay Report Signed Patient: Keven Lopez#: [id number] : 1965Acct:[id number] Age/Sex: 58 / MADM Date: 05/13/24 Loc: HO.ED Attending Dr: Ordering Physician: Barrett Sharma MD Date of Service: 05/13/24 Procedure(s): XR shoulder RT min 2V Accession Number(s): [id number] cc: [facility]; Barrett Sharma MD CLINICAL HISTORY: Fall [...] in OV> 05/13/242216 DD/ 15 TD/TT: 05/13/242215 Delivery Technician: us [facility] External Provider IMG XR PROCEDURES Edited Result - Final * XR Knee 3 Views Left (05/13/2024 10:14 PM EST) Anatomical Region Laterality Modality Lower Extremities, Knee Left Radiogra phic Imaging 05/13/2024 10:1 4 PM EST Narrative 05/13/2024 10:14 PM EST ? [facility] ?[address] ?[place], [place] [address] ?XRay Report ? Signed ? Patient: Delano Lopez ?MR#: [id number] ? : 1965 ?Acct:[id number] ? Age/Sex: 58 / M ?ADM Date: 05/13/24 ? Loc: HO.ED ? Attending Dr: ? Ordering Physician: Barrett Sharma MD ?? Date of Service: 05/13/24 ?? Procedure(s): XR knee LT 3V ?? Accession Number(s): [id number] ? cc: [facility]; Barrett Sharma MD ? CLINICAL HISTORY: [...] ? DD/ 13 ? TD/TT: 05/13/242213 ? Delivery Technician: ? Procedure Note Trista, Image - 05/13/[address] [address] XRay Report Signed Patient: Keven Lopez#: [id number] : 1965Acct:[id number] Age/Sex: 58 / MADM Date: 05/13/24 Loc: HO.ED Attending Dr: Ordering Physician: Barrett Sharma MD Date of Service: 05/13/24 Procedure(s): XR knee LT 3V Accession Number(s): [id number] cc: [facility]; Barrett Sharma MD CLINICAL HISTORY: Fall [...] in OV> 05/13/242213 DD/ 13 TD/TT: 05/13/242213 Delivery Technician: us [facility] External Provider IMG XR PROCEDURES Edited Result - Final * CT Head w/o Contrast (05/13/2024 7:16 PM EST) Anatomical Region Laterality Modality Head, Neck Computed Tomogra phy 05/13/2024 7:16 PM EST Narrative 05/13/2024 7:17 PM EST ? [place] [facility] ?[address] ?[place] [address] ? CT Scan Report ? Signed ? Patient: John,Delano ?MR#: [id number] ? : 1965 ?Acct:[id number] ? Age/Sex: 58 / M ?ADM Date: 05/13/24 ? Loc: HO.ED ? Attending Dr: ? Ordering Physician: Barrett Sharma MD ?? Date of Service: 05/13/24 ?? Procedure(s): CT head/brain wo IV con ?? Accession Number(s): [id number] ? cc: [facility]; Barrett Sharma MD ? Report Number: ?? [id number]: Total DLP = ?0.00 mGy-cm ? CLINICAL [...] ? DD/ 15 ? TD/TT: 05/13/241915 ? Delivery Technician: ? Procedure Note Yaneth Weston - 05/13/[address] [address] CT Scan Report Signed Patient: Keven Lopez#: [id number] : 1965Acct:[id number] Age/Sex: 58 / MADM Date: 05/13/24 Loc: HO.ED Attending Dr: Ordering Physician: Barrett Sharma MD Date of Service: 05/13/24 Procedure(s): CT head/brain wo IV con Accession Number(s): [id number] cc: [facility]; Barrett Sharma MD Report Number: [id number]: Total DLP = 0.00 mGy-cm CLINICAL HISTORY: [...] in OV> 05/13/241916 DD/ 15 TD/TT: 05/13/241915 Delivery Technician: [facility] External Provider IMG CT PROCEDURES Final Result * CT Chest w/o Contrast (05/13/2024 7:01 PM EST) Anatomical Region Laterality Modality Body, Chest Computed Tomogra phy 05/13/2024 7:01 PM EST Narrative 05/13/2024 7:02 PM EST ? [facility] ?[address] ?[place] [address] ? CT Scan Report ? Signed ? Patient: John,Delano ?MR#: [id number] ? : 1965 ?Acct:[id number] ? Age/Sex: 58 / M ?ADM Date: 03/07/25 ? Loc: HO.ED ? Attending Dr: ? Ordering Physician: Barrett Sharma MD ?? Date of Service: 05/13/24 ?? Procedure(s): CT chest wo IV con ?? Accession Number(s): [id number] ? cc: [facility]; Barrett Sharma MD ? Report Number: ?? [id number]: Total DLP = ?0.00 mGy-cm ? CLINICAL [...] signed by Denilson Monroy MD in OV> ?05/13/241900 ? DD/ 00 ? TD/TT: 05/13/241900 ? Delivery Technician: ? Procedure Note Yaneth Weston - 05/13/[address] [place] [address] [address] Scan Report Signed Patient: Keven Lopez#: [id number] : 1965Acct:[id number] Age/Sex: 58 / MADM Date: 05/13/24 Loc: HO.ED Attending Dr: Ordering Physician: Barrett Sharma MD Date of Service: 05/13/24 Procedure(s): CT chest wo IV con Accession Number(s): [id number] cc: [facility]; Barrett Sharma MD Report Number: [id number]: Total DLP = 0.00 mGy-cm CLINICAL HISTORY: [...] signed by Denilson Monroy MD in OV> 05/13/24 190 DD/ 00 TD/TT: 05/13/241900 Delivery Technician: [facility] External Provider IMG CT PROCEDURES Final Result * CT Cervical Spine w/o Contrast (05/13/2024 6:54 PM EST) Anatomical Region Laterality Modality Spine, C-spine Computed Tomogra phy 05/13/2024 6:54 PM EST Narrative 05/13/2024 6:55 PM EST ? [facility] ?[address] ?[place] [address] ? CT Scan Report ? Signed ? Patient: John,Delano ?MR#: [id number] ? : 1965 ?Acct:[id number] ? Age/Sex: 58 / M ?ADM Date: 03/07/25 ? Loc: HO.ED ? Attending Dr: ? Ordering Physician: Barrett Sharma MD ?? Date of Service: 05/13/24 ?? Procedure(s): CT cervical spine wo IV con ?? Accession Number(s): [id number] ? cc: [facility]; Barrett Sharma MD ? Report Number: ?? [id number]: Total DLP = 1221.00 mGy-cm ? CLINICAL [...] MD in OV> ?05/13/24 1855 ? DD/ 53 ? TD/TT: 05/13/241853 ? Delivery Technician: ? Procedure Note Yaneth Weston - 05/13/[address] [place] [address] [address] Scan Report Signed Patient: Keven Lopez#: [id number] : 1965Acct:[id number] Age/Sex: 58 / MADM Date: 05/13/24 Loc: HO.ED Attending Dr: Ordering Physician: Barrett Sharma MD Date of Service: 05/13/24 Procedure(s): CT cervical spine wo IV con Accession Number(s): [id number] cc: [facility]; Barrett Sharma MD Report Number: [id number]: Total DLP = 1221.00 mGy-cm CLINICAL HISTORY: [...] in OV> 05/13/241854 DD/ 53 TD/TT: 05/13/241853 Delivery Technician: [facility] External Provider IMG CT PROCEDURES Final Result from Last 3 Months [facility] Care Teams Flight Information Expediter Relationship Specialty Start Date End Date Marta Campos ANP [address] [place] [phone] PCP - General Family Medicine 08/03/19
[2024-08-04] MEDS: iohexoL 350 MG/ML 100 ML INFUS..BTL IV (09:44)
== END 2024-08-04 08:14 | disposition home or self-care (01) ==
LOC: HO.CT 08:13
PROVIDERS: Visit Provider Surgery
DX: R22.2 Localized swelling, mass and lump, trunk (principal)
CPT/HCPCS: 71260; Q9967

== ENCOUNTER → 2024-08-04 08:17 | Outpatient (BNV) | payer MEDICAID, SELFPAY | PROVIDERS: Visit Provider Specialist | DX: R22.2 Localized swelling, mass and lump, trunk (principal) | CPT/HCPCS: 71260 ==

== ENCOUNTER 2025-02-03 17:11 | Emergency (ER) | payer MEDICAID, SELFPAY ==
--- NOTE | ~2025-02-03 | XR_ITS ---
CLINICAL HISTORY: post op, inappropriately weight bearing 2 views right leg tibia-fibula Comparison: None . Findings: There is satisfactory alignment of fracture ORIF involving left tibia diaphysis and right fibula metaphysis and diaphysis. No joint effusion. No significant arthritic change. No radiopaque foreign body. Impression: Focal soft tissue swelling of infrapatellar soft tissues in the lateral projection Stable fracture ORIF of tibia and fibula with no displacement of hardware This document has been electronically signed by: Denilson Monroy MD on 02/03/2025 19:09:39
[2025-02-03 17:14] VITALS: BP 119/80; PULSE 116; RESP 20; TEMP 37; O2SAT 100; BMI 26.6
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
[2025-02-03 18:42] VITALS: BP 128/60; PULSE 97; RESP 16; TEMP 36.9; O2SAT 100
[2025-02-03] MEDS: Morphine Sulfate Immed Release 15 MG TABLET PO (19:22)
[2025-02-03 19:42] VITALS: BP 128/60; PULSE 97; RESP 16; TEMP 36.9; O2SAT 100
== END 2025-02-03 19:42 | disposition home or self-care (01) ==
PROVIDERS: Emergency Provider Emergency Medicine
DX: S80.11XA Contusion of right lower leg, initial encounter (principal); M79.604 Pain in right leg; R79.89 Other specified abnormal findings of blood chemistry; X58.XXXA Exposure to other specified factors, initial encounter; Y93.9 Activity, unspecified; Y92.9 Unspecified place or not applicable; Y99.8 Other external cause status
CPT/HCPCS: 73590; 99283; 99284

== ENCOUNTER → 2025-02-03 18:12 | Outpatient (BNV) | payer MEDICAID, SELFPAY | PROVIDERS: Emergency Provider Emergency Medicine; Visit Provider Radiology Diagnostic Radiology | DX: M79.89 Other specified soft tissue disorders (principal) | CPT/HCPCS: 73590 ==